=== PATIENT | female | born 1955 | race Hispanic/Latino ===

== ENCOUNTER → 2020-08-15 | Outpatient (CLI) | payer OTHER, MEDICARE | END | disposition home or self-care (01) | LOC: RAH 11:27 | PROVIDERS: ATTEND Internal Medicine | DX: Z01.818 Encounter for other preprocedural examination (principal); M47.815 Spondylosis without myelopathy or radiculopathy, thoracolumbar region | CPT/HCPCS: 71046 ==

== ENCOUNTER → 2020-08-25 | Outpatient (CLI) | payer OTHER, MEDICARE ==
[~2020-08-25] VITALS: Ht 149.9 cm; Wt 77.1 kg
[~2020-08-25] MED LIST: REGADENOSON 0.4 MG/5 ML PF SYG IVP SCH
== END | disposition home or self-care (01) ==
LOC: SHCH 08:42
PROVIDERS: ATTEND Internal Medicine Cardiovascular Disease
DX: Z01.810 Encounter for preprocedural cardiovascular examination (principal); R06.02 Shortness of breath
CPT/HCPCS: 78452; 93017; 96374; A9500 ×2; J2785

== ENCOUNTER → 2020-09-07 | Outpatient (CLI) | payer OTHER, MEDICARE ==
[~2020-09-07] VITALS: Ht 149.9 cm; Wt 80.9 kg
[~2020-09-07] MED LIST changes: +ACET-2743 PO; +AEC81 PO; +DEXT1CAP3 PO; +GABA300C PO; +GABAPENTIN PO; +OLME20TA22 PO; +OMEP20CA12 PO; +PHARMACY COMMUNICATION MISC SCH; -REGADENOSON 0.4 MG/5 ML PF SYG IVP SCH; +SODIUM CHLORIDE 0.9% 500ML 500 ML IV SCH; +TRAM50TA4 PO
[2020-09-07 12:32] LABS: BASOPHILS % (AUTO) 0.7 % (0.0-5.0); EOSINOPHILS % (AUTO) 2.5 % (0.0-8.0); HEMATOCRIT 34.9 % (36-48); LYMPHOCYTES % (AUTO) 28.5 % (21.0-51.0); MEAN CORPUSCULAR HEMOGLOBIN 23.6 pg (27.0-33.0); MEAN CORPUSCULAR HGB CONC 30.1 g/dL (32.0-36.0); MEAN CORPUSCULAR VOLUME 78.4 fL (79-99); NEUTROPHILS % (AUTO) 55.1 % (40.0-77.0); PLATELET COUNT (AUTO) 395 K/uL (130-400); RED BLOOD CELL COUNT(AUTO) 4.45 MIL/uL (4.00-5.50); RED CELL DISTRIBUTION WIDTH 17.3 % (11.0-15.5); WHITE BLOOD COUNT (AUTO) 4.5 K/uL (4.8-10.8)
[2020-09-07 12:38] LABS: APPEARANCE,URINE Clear (CLEAR); BILIRUBIN,URINE Negative (NEGATIVE); COLOR,URINE Yellow (YELLOW); GLUCOSE, URINE (UA) Negative (NEGATIVE); KETONES,URINE Negative (NEGATIVE); LEUKOCYTE ESTERASE ,URINE Trace (NEGATIVE); NITRATE,URINE Positive (NEGATIVE); OCCULT BLOOD,URINE Negative (NEGATIVE); PH,URINE 5.5 (5.0-8.0); PROTEIN,URINE Negative (NEGATIVE)
[2020-09-07 12:48] LABS: PROTHROMBIN TIME 10.9 SEC (9.6-11.6)
[2020-09-07 12:49] LABS: CREATININE 0.6 mg/dL (0.5-1.5); POTASSIUM 3.8 mmol/L (3.5-5.1)
[2020-09-07 12:50] LABS: PARTIAL THROMBOPLASTIN TIME 24.4 SEC (26.3-35.5)
[2020-09-07 13:06] LABS: BACTERIA,URINE Many /HPF (None Seen); MUCUS,URINE Few LPF (None Seen); RBC,URINE 0-1 /HPF (0-1); SQUAMOUS EPITHELIAL CELL,UR 0-2 /HPF (0-2)
[2020-09-08 10:45] VITALS: BP 117/66
== END | disposition home or self-care (01) ==
LOC: DAH 10:00 → EDSTATUS 10:00
PROVIDERS: ATTEND Internal Medicine Cardiovascular Disease
DX: I35.0 Nonrheumatic aortic (valve) stenosis (principal); R94.39 Abnormal result of other cardiovascular function study
CPT/HCPCS: 36415; 71045; 80048; 81001; 85025; 85610; 85730; 87077; 87088; 87186; 93005

== ENCOUNTER 2020-09-19 11:48 | Day surgery (SDC) | payer OTHER, MEDICARE ==
[~2020-09-19] VITALS: Ht 149.9 cm; Wt 78.8 kg
[~2020-09-19 11:48] MED LIST changes: -ACET-2743 PO; -DEXT1CAP3 PO; -GABA300C PO; -PHARMACY COMMUNICATION MISC SCH; -SODIUM CHLORIDE 0.9% 500ML 500 ML IV SCH
[2020-09-20 08:49] VITALS: BP 99/52
[2020-09-20] MEDS ORDERED: ACET-2743 PO (10:40)
[2020-09-20] MEDS ORDERED: DEXT1CAP3 PO (10:40)
[2020-09-20] MEDS ORDERED: GABA300C PO (10:40)
[2020-09-21 12:05] VITALS: BP 110/71
[2020-09-21 12:30] VITALS: BP 151/64
[2020-09-21] MEDS ORDERED: ISOVUE-M 200 20 ML VIAL IT ONE (12:46)
[2020-09-21] MEDS ORDERED: DEXAMETHASONE SOD PHOSPHATE 4 MG/ML 1ML VIAL ONE (12:48)
[2020-09-21] MEDS ORDERED: LIDOCAINE HCL MPF 1% 5ML VIAL ONE (12:49)
[2020-09-21] MEDS ORDERED: BUPIVACAINE/PF 0.5% 10ML VIAL ONE (13:00)
[2020-09-21 13:30] VITALS: BP 151/64
[2020-09-21 14:00] VITALS: BP 120/51
== END 2020-09-21 14:00 | disposition home or self-care (01) ==
LOC: DAH 11:48
PROVIDERS: ATTEND Family Medicine Sports Medicine
DX: M46.1 Sacroiliitis, not elsewhere classified (principal); M53.3 Sacrococcygeal disorders, not elsewhere classified; S39.012A Strain of muscle, fascia and tendon of lower back, initial encounter; G40.909 Epilepsy, unspecified, not intractable, without status epilepticus; E03.9 Hypothyroidism, unspecified; M19.90 Unspecified osteoarthritis, unspecified site; R29.898 Other symptoms and signs involving the musculoskeletal system; Z96.653 Presence of artificial knee joint, bilateral; Z90.49 Acquired absence of other specified parts of digestive tract; Z98.84 Bariatric surgery status; Z90.710 Acquired absence of both cervix and uterus; X58.XXXA Exposure to other specified factors, initial encounter; Y93.89 Activity, other specified; Y92.89 Other specified places as the place of occurrence of the external cause; Y99.8 Other external cause status; Z20.828 Contact with and (suspected) exposure to other viral communicable diseases
CPT/HCPCS: 72202; A4215 ×2; A4221; A4222; A4223; A4663; C9803; G0260; J1030 ×2; J3490; Q9966; U0003; 27096; J1100

== ENCOUNTER 2020-11-21 07:15 | Day surgery (SDC) | payer OTHER, MEDICARE ==
[2020-11-20 13:30] LABS: BASOPHILS % (AUTO) 0.5 % (0.0-5.0); EOSINOPHILS % (AUTO) 2.7 % (0.0-8.0); LYMPHOCYTES % (AUTO) 30.4 % (21.0-51.0); MEAN CORPUSCULAR HGB CONC 32.3 g/dL (32.0-36.0); MEAN CORPUSCULAR VOLUME 86.8 fL (79-99); MONOCYTES % (AUTO) 11.8 % (3.0-13.0); NEUTROPHILS % (AUTO) 54.1 % (40.0-77.0); PLATELET COUNT (AUTO) 322 K/uL (130-400); RED BLOOD CELL COUNT(AUTO) 4.61 MIL/uL (4.00-5.50); RED CELL DISTRIBUTION WIDTH 19.1 % (11.0-15.5); WHITE BLOOD COUNT (AUTO) 4.2 K/uL (4.8-10.8)
[2020-11-20 13:32] LABS: CREATININE 0.7 mg/dL (0.5-1.5); POTASSIUM 4.5 mmol/L (3.5-5.1)
[2020-11-20 13:33] LABS: INR 0.98 (0.85-1.15); PROTHROMBIN TIME 10.7 SEC (9.6-11.6)
[2020-11-20 13:35] LABS: PARTIAL THROMBOPLASTIN TIME 23.6 SEC (26.3-35.5)
[2020-11-20 13:44] LABS: APPEARANCE,URINE CLEAR (CLEAR); BILIRUBIN,URINE NEGATIVE (NEGATIVE); COLOR,URINE YELLOW (YELLOW); GLUCOSE, URINE (UA) NEGATIVE (NEGATIVE); KETONES,URINE 15 mg/dL (NEGATIVE); LEUKOCYTE ESTERASE ,URINE TRACE (NEGATIVE); NITRATE,URINE NEGATIVE (NEGATIVE); OCCULT BLOOD,URINE NEGATIVE (NEGATIVE); PH,URINE 5.5 (5.0-8.0); PROTEIN,URINE NEGATIVE (NEGATIVE); UROBILINOGEN,URINE 0.2 mg/dL (0.2-1.0)
[2020-11-20 13:48] LABS: BACTERIA,URINE Rare /HPF (None Seen); HYALINE CASTS, URINE 0-1 /LPF (0-1 /LPF); MUCUS,URINE Few LPF (None Seen); RBC,URINE 0-1 /HPF (0-1); SQUAMOUS EPITHELIAL CELL,UR Rare /HPF (0-2)
[2020-11-20 15:22] VITALS: BP 118/56
[~2020-11-21] VITALS: Ht 147.3 cm; Wt 78.8 kg
[2020-11-21] VITALS (9 sets, daily range): BP systolic 107–157; BP diastolic 55–84
[~2020-11-21 07:15] MED LIST changes: -AEC81 PO; +DEXT1CAP3 PO; +GABA300C PO; -GABAPENTIN PO; -OMEP20CA12 PO; -TRAM50TA4 PO
[2020-11-21] MEDS ORDERED: HEPARIN 10,000 UNIT/10ML (1,000 UNIT/ML) VIAL ONE (07:58)
[2020-11-21] MEDS ORDERED: BIVALIRUDIN 250 MG/VIAL IV ONE (07:58)
[2020-11-21] MEDS ORDERED: LIDOCAINE HCL 400MG/20ML VIAL ONE (07:59)
[2020-11-21] MEDS ORDERED: IOHEXOL-350 75 ML VIAL IV ONE (07:59)
[2020-11-21] MEDS ORDERED: IOHEXOL 350 MG/ML 100ML INFUS..BTL IV ONE (07:59)
[2020-11-21] MEDS ORDERED: NITROGLYCERIN 2 MG VIAL IV ONE (07:59)
[2020-11-21] MEDS ORDERED: 0.9%NACL 1000ML 1,000 ML IV ONE (08:31)
[2020-11-21] MEDS ORDERED: OLME40TA18 PO (08:40)
[2020-11-21] MEDS ORDERED: OMEP20TA25 PO (08:40)
[2020-11-21] MEDS ORDERED: CELE200C PO (08:40)
[2020-11-21] MEDS ORDERED: NAPR500T6 PO (08:40)
[2020-11-21] MEDS ORDERED: BACL5TAB PO (08:40)
[2020-11-21] MEDS ORDERED: FENTANYL CITRATE PF 50 MCG/1 ML 2ML VIAL ONE (09:13)
[2020-11-21] MEDS ORDERED: ATROPINE 1MG SYG IVP ONE (09:45)
[2020-11-21] MEDS ORDERED: 0.9%NACL 1000ML 1,000 ML IV SCH (11:00)
[2020-11-21 13:23] LABS: THYROID STIMULATING HORMONE 1.16 uIU/mL (0.36-3.74)
== END 2020-11-21 15:23 | disposition home or self-care (01) ==
LOC: DAH 07:15
PROVIDERS: ATTEND Internal Medicine Cardiovascular Disease
DX: I35.0 Nonrheumatic aortic (valve) stenosis (principal); I27.20 Pulmonary hypertension, unspecified; G47.33 Obstructive sleep apnea (adult) (pediatric); E03.9 Hypothyroidism, unspecified; E66.9 Obesity, unspecified; M19.90 Unspecified osteoarthritis, unspecified site; D50.9 Iron deficiency anemia, unspecified; Z86.73 Personal history of transient ischemic attack (TIA), and cerebral infarction without residual deficits; Z90.49 Acquired absence of other specified parts of digestive tract; Z90.710 Acquired absence of both cervix and uterus; Z98.890 Other specified postprocedural states; Z83.3 Family history of diabetes mellitus; Z79.01 Long term (current) use of anticoagulants; Z82.49 Family history of ischemic heart disease and other diseases of the circulatory system; Z82.61 Family history of arthritis; Z82.0 Family history of epilepsy and other diseases of the nervous system; Z68.35 Body mass index [BMI] 35.0-35.9, adult; Z88.8 Allergy status to other drugs, medicaments and biological substances
CPT/HCPCS: 36415 ×2; 71045; 80048; 81001; 84439; 84443; 85025; 85610; 85730; 93005; 93460; A4215; A4216; A4221; A4222; A4223 ×3; A4606; A4663; C1760; C1769; C1893; C1894 ×2; J0461; J1644; J3010; J3490 ×2; J7030; Q9965 ×2; Q9967 ×2; 99156; 99157; J0583

== ENCOUNTER 2021-01-18 09:00 | Observation (INO) | payer OTHER, MEDICARE ==
[~2021-01-18] VITALS: Ht 149.9 cm; Wt 79.5 kg
[~2021-01-18 09:00] MED LIST changes: +BACL5TAB PO; -OLME20TA22 PO; +OLME40TA18 PO; +OMEP20TA25 PO
[2021-01-18 10:50] LABS: BASOPHILS % (AUTO) 0.4 % (0.0-5.0); EOSINOPHILS % (AUTO) 1.8 % (0.0-8.0); HEMATOCRIT 39.1 % (36-48); LYMPHOCYTES % (AUTO) 18.2 % (21.0-51.0); MEAN CORPUSCULAR HEMOGLOBIN 29.3 pg (27.0-33.0); MEAN CORPUSCULAR HGB CONC 31.7 g/dL (32.0-36.0); MEAN CORPUSCULAR VOLUME 92.4 fL (79-99); MONOCYTES % (AUTO) 7.2 % (3.0-13.0); PLATELET COUNT (AUTO) 361 K/uL (130-400); RED BLOOD CELL COUNT(AUTO) 4.23 MIL/uL (4.00-5.50); RED CELL DISTRIBUTION WIDTH 13.7 % (11.0-15.5); WHITE BLOOD COUNT (AUTO) 7.2 K/uL (4.8-10.8)
[2021-01-18 10:54] LABS: APPEARANCE,URINE Clear (CLEAR); BILIRUBIN,URINE Negative (NEGATIVE); COLOR,URINE Dark Yellow (YELLOW); GLUCOSE, URINE (UA) Negative (NEGATIVE); KETONES,URINE Negative (NEGATIVE); LEUKOCYTE ESTERASE ,URINE Trace (NEGATIVE); NITRATE,URINE Negative (NEGATIVE); OCCULT BLOOD,URINE Negative (NEGATIVE); PH,URINE 5.5 (5.0-8.0); PROTEIN,URINE Negative (NEGATIVE)
[2021-01-18 10:55] LABS: CREATININE 0.9 mg/dL (0.5-1.5); POTASSIUM 4.6 mmol/L (3.5-5.1)
[2021-01-18 11:22] LABS: BACTERIA,URINE Moderate /HPF (None Seen); RBC,URINE None Seen /HPF (0-1); SQUAMOUS EPITHELIAL CELL,UR Rare /HPF (0-2)
[2021-01-18 11:23] LABS: WBC,URINE 0-1 /HPF (0-1)
[2021-01-18 11:50] LABS: INR 0.96 (0.85-1.15); PROTHROMBIN TIME 10.5 SEC (9.6-11.6)
[2021-01-19 09:53] VITALS: BP 117/50
[2021-01-19] MEDS ORDERED: CETI-454 PO (11:40)
[2021-01-19] MEDS ORDERED: VITAMIN B12 PO (11:40)
[2021-01-19] MEDS ORDERED: TRAM50TA4 PO (11:40)
[2021-01-19] MEDS ORDERED: CHOL-34 PO (11:40)
[2021-01-19] MEDS ORDERED: FERROUS SULFATE PO (11:40)
[2021-01-22] VITALS (25 sets, daily range): BP systolic 96–156; BP diastolic 49–87
[2021-01-22] MEDS ORDERED: LACTATED RINGERS 1000ML 1,000 ML IV ONE (08:04)
[2021-01-22] MEDS ORDERED: MIDAZOLAM HCL 1 MG/ML 2ML VIAL ONE (08:05)
[2021-01-22] MEDS ORDERED: FENTANYL CITRATE PF 50 MCG/1 ML 2ML VIAL ONE ×3 (08:05→11:02)
[2021-01-22] MEDS ORDERED: PHENYLEPHRINE HCL 10 MG/ML 1ML VIAL IV ONE (08:11)
[2021-01-22] MEDS ORDERED: PROPOFOL 10 MG/ML 20ML VIAL IV ONE (08:11)
[2021-01-22] MEDS ORDERED: DEXAMETHASONE SOD PHOSPHATE 10MG/ML 1ML VIAL ONE (08:11)
[2021-01-22] MEDS ORDERED: ONDANSETRON 4MG INJ ONE (08:13)
[2021-01-22] MEDS ORDERED: ROPIVACAINE 0.5% 5MG/ML 30ML IJ ONE (08:14)
[2021-01-22] MEDS: CEFAZOLIN SODIUM 1 GM VIAL IVP SCH ×5 (09:07→23:59)
[2021-01-22] MEDS ORDERED: TRANEXAMIC ACID 1000MG/10ML ONE (09:49)
[2021-01-22] MEDS ORDERED: CEFAZOLIN SODIUM 1 GM VIAL ONE (09:53)
[2021-01-22] MEDS ORDERED: ESMOLOL HCL 10 MG/ML 10 ML VIAL ONE (10:31)
[2021-01-22] MEDS ORDERED: GLYCOPYRROLATE 1 MG/5 ML SYRINGE ONE (12:10)
[2021-01-22] MEDS ORDERED: KCL 20 MEQ ERTAB PO PRN (12:30)
[2021-01-22] MEDS: ACETAMINOPHEN 500 MG TABLET PO SCH ×2 (12:30→19:55)
[2021-01-22] MEDS ORDERED: CALCIUM CARB 500MG PO PRN (12:30)
[2021-01-22] MEDS ORDERED: OXYCODONE HCL 5 MG TAB PO PRN (12:30)
[2021-01-22] MEDS ORDERED: TRAMADOL HCL 50 MG TABLET PO PRN (12:30)
[2021-01-22] MEDS ORDERED: DiphenhydrAMINE HCL 50 MG/ML VIAL IVP PRN (12:30)
[2021-01-22] MEDS ORDERED: 0.9%NACL 1000ML 1,000 ML IV SCH (12:30)
[2021-01-22] MEDS ORDERED: ONDANSETRON 4MG INJ IVP PRN (12:30)
[2021-01-22] MEDS ORDERED: LIDOCAINE HCL-MPF 1% 2ML VIAL IV PRN (12:30)
[2021-01-22] MEDS ORDERED: KETOROLAC 15MG/ML VIAL (15MG/ML) IV PRN (12:30)
[2021-01-22] MEDS ORDERED: POTASSIUM CHLORIDE 10% ELIXIR 20 MEQ/15 ML UDCUP PO PRN (12:30)
[2021-01-22] MEDS ORDERED: POTASSIUM CHLORIDE 20MEQ/100ML 100 ML IV PRN (12:30)
[2021-01-22] MEDS ORDERED: FERROUS FUMARATE 324 MG TABLET PO PRN (12:30)
[2021-01-22] MEDS ORDERED: TEMAZEPAM 15 MG CAPSULE PO PRN (12:30)
[2021-01-22] MEDS ORDERED: MEPERIDINE-PF 25 MG/ML SYG ONE ×2 (12:48→12:59)
[2021-01-22] MEDS: OXYCODONE HCL 5 MG TAB PO PRN (13:56)
[2021-01-22] MEDS: INSULIN HUMULIN R 100 UNIT/ML 3ML SQ SCH ×2 (16:30→19:56)
[2021-01-22] MEDS ORDERED: GABAPENTIN 300 MG CAPSULE ONE (19:40)
[2021-01-22] MEDS ORDERED: BACLOFEN 10 MG TABLET ONE (19:41)
[2021-01-22] MEDS: NITROFURANTOIN MONOHYD/M-CRYST 100 MG CAPSULE PO SCH (19:53)
[2021-01-22] MEDS: CELECOXIB 200 MG CAP PO SCH (19:53)
[2021-01-22] MEDS: GABAPENTIN 300 MG CAPSULE PO SCH (19:54)
[2021-01-22] MEDS: ASPIRIN 81MG CHEW TAB PO SCH (19:54)
[2021-01-22] MEDS: BACLOFEN 10 MG TABLET PO SCH (19:54)
[2021-01-22] MEDS: QUINIDINE PO SCH (19:55)
[2021-01-22] MEDS: **HM**(Cholecalciferol (Vitamin D3) (Vitamin D3) 25 MCG PO SCH (19:55)
[2021-01-22] MEDS: DEXTROMETHORPHAN HBR PO SCH (19:55)
[2021-01-23] MEDS: OXYCODONE HCL 5 MG TAB PO PRN ×2 (00:05→09:36)
[2021-01-23] MEDS: ACETAMINOPHEN 500 MG TABLET PO SCH ×3 (04:30→19:12)
[2021-01-23 06:36] LABS: CREATININE 0.8 mg/dL (0.5-1.5); POTASSIUM 4.5 mmol/L (3.5-5.1)
[2021-01-23] MEDS: INSULIN HUMULIN R 100 UNIT/ML 3ML SQ SCH ×4 (06:37→19:45)
[2021-01-23 06:43] VITALS: BP 99/51
[2021-01-23 06:47] LABS: HEMATOCRIT 33.6 % (36-48); MEAN CORPUSCULAR HEMOGLOBIN 29.8 pg (27.0-33.0); MEAN CORPUSCULAR HGB CONC 32.7 g/dL (32.0-36.0); MEAN CORPUSCULAR VOLUME 91.1 fL (79-99); RED BLOOD CELL COUNT(AUTO) 3.69 MIL/uL (4.00-5.50); RED CELL DISTRIBUTION WIDTH 13.3 % (11.0-15.5); WHITE BLOOD COUNT (AUTO) 12.2 K/uL (4.8-10.8)
[2021-01-23 08:00] VITALS: BP 111/60
[2021-01-23] MEDS: QUINIDINE PO SCH ×2 (09:00→19:13)
[2021-01-23] MEDS ORDERED: FERROUS SULFATE 65 MG PO SCH (09:00)
[2021-01-23] MEDS: DEXTROMETHORPHAN HBR PO SCH ×2 (09:00→19:13)
[2021-01-23] MEDS: LOSARTAN 100 MG TABLET PO SCH (09:00)
[2021-01-23] MEDS: POLYETHYLENE GLYCOL 3350 17 GM POWD.PACK PO SCH (09:34)
[2021-01-23] MEDS: BACLOFEN 10 MG TABLET PO SCH ×3 (09:35→19:11)
[2021-01-23] MEDS: NITROFURANTOIN MONOHYD/M-CRYST 100 MG CAPSULE PO SCH ×2 (09:35→19:11)
[2021-01-23] MEDS: CYANOCOBALAMIN (VITAMIN B-12) 1,000 MCG TABLET PO SCH (09:35)
[2021-01-23] MEDS: ASPIRIN 81MG CHEW TAB PO SCH ×2 (09:35→19:12)
[2021-01-23] MEDS: CELECOXIB 200 MG CAP PO SCH ×2 (09:35→19:11)
[2021-01-23] MEDS: GABAPENTIN 300 MG CAPSULE PO SCH ×3 (09:36→19:11)
[2021-01-23] MEDS: PANTOPRAZOLE 40 MG TAB DR PO SCH (09:36)
[2021-01-23 12:00] VITALS: BP 99/63
[2021-01-23 16:00] VITALS: BP 97/51
[2021-01-23] MEDS: **HM**(Cholecalciferol (Vitamin D3) (Vitamin D3) 25 MCG PO SCH (19:13)
[2021-01-23 20:11] VITALS: BP 120/56
[2021-01-23 23:32] VITALS: BP 132/64
[2021-01-24] MEDS: OXYCODONE HCL 5 MG TAB PO PRN ×4 (00:10→14:45)
[2021-01-24 04:15] VITALS: BP 133/58
[2021-01-24] MEDS: ACETAMINOPHEN 500 MG TABLET PO SCH (04:54)
[2021-01-24] MEDS: INSULIN HUMULIN R 100 UNIT/ML 3ML SQ SCH ×2 (05:28→11:30)
[2021-01-24 07:07] VITALS: BP 110/57
[2021-01-24] MEDS: DEXTROMETHORPHAN HBR PO SCH (08:47)
[2021-01-24] MEDS: QUINIDINE PO SCH (08:47)
[2021-01-24] MEDS: NITROFURANTOIN MONOHYD/M-CRYST 100 MG CAPSULE PO SCH (10:02)
[2021-01-24] MEDS: CYANOCOBALAMIN (VITAMIN B-12) 1,000 MCG TABLET PO SCH (10:02)
[2021-01-24] MEDS: BACLOFEN 10 MG TABLET PO SCH ×2 (10:02→14:44)
[2021-01-24] MEDS: PANTOPRAZOLE 40 MG TAB DR PO SCH (10:02)
[2021-01-24] MEDS: POLYETHYLENE GLYCOL 3350 17 GM POWD.PACK PO SCH (10:02)
[2021-01-24] MEDS: LOSARTAN 100 MG TABLET PO SCH (10:02)
[2021-01-24] MEDS: CELECOXIB 200 MG CAP PO SCH (10:02)
[2021-01-24] MEDS: GABAPENTIN 300 MG CAPSULE PO SCH ×2 (10:03→14:44)
[2021-01-24] MEDS: ASPIRIN 81MG CHEW TAB PO SCH (10:16)
[2021-01-24 10:45] VITALS: BP 128/63
[2021-01-24] MEDS ORDERED: NITR100C4 PO (12:16)
[2021-01-24] MEDS ORDERED: HYDR-4060 PO (12:16)
[2021-01-24] MEDS ORDERED: ASPI-1005 PO (12:16)
[2021-01-24] MEDS ORDERED: ACETAMINOPHEN 500 MG TABLET PO SCH (14:00)
[2021-01-25] MEDS ORDERED: BISACODYL 10 MG SUPP.RECT RC PRN (12:30)
== END 2021-01-24 18:30 | disposition home health service (06) ==
LOC: EDSTATUS 09:00 → DAHIP 01-22 07:53 → 4AH 01-22 13:49
PROVIDERS: ADMIT Orthopaedic Surgery; ATTEND Orthopaedic Surgery
DX: M23.52 Chronic instability of knee, left knee (principal); Z96.652 Presence of left artificial knee joint; N39.0 Urinary tract infection, site not specified; Z98.84 Bariatric surgery status
CPT/HCPCS: 27334; 27425; 27486; 36415 ×2; 80048 ×2; 81001; 82948 ×10; 85025; 85027; 85610; 87070; 87076; 87077; 87088; 87186; 87635; 87641; 96361; 96372; 96374; 96375; 96376; 97039 ×4; 97116 ×4; 97161; 97530 ×3; A4215; A4216; A4221; A4222; A4223 ×2; A4600; A4649 ×4; A4663; A4930 ×2; A5120; A6219; C1776 ×2; G0378 ×52; G8978; G8979; G8980; G8981; G8982; G8983; J0690 ×6; J1100; J1815; J1885; J2175 ×2; J2250; J2370; J2405; J2704; J2795; J3010 ×3; J3490 ×3; J7030; J7120

== ENCOUNTER → 2022-03-21 | Outpatient (CLI) | payer OTHER, MEDICARE ==
[~2022-03-21] MED LIST changes: +ASPI-1005 PO; +CETI-454 PO; +CHOL-34 PO; +FERROUS SULFATE PO; +HYDR-4060 PO; +NITR100C4 PO; +OMEP20TA20 PO; -OMEP20TA25 PO; +VITAMIN B12 PO
== END | disposition home or self-care (01) ==
LOC: SHCH 11:25
PROVIDERS: ATTEND Internal Medicine Cardiovascular Disease
DX: I08.0 Rheumatic disorders of both mitral and aortic valves (principal)
CPT/HCPCS: 93306